=== PATIENT | male | born 1995 | race African-American/Black ===

== ENCOUNTER 2022-10-28 16:36 | Emergency (ER) | payer BC, OTHER ==
[~2022-10-28] VITALS: Ht 182.9 cm; Wt 61.2 kg
[2022-10-28 17:12] VITALS: BP 114/68
--- NOTE | 2022-10-28 22:05 | NUR ---
Patient discharged to home in stable condition. Written and verbal after care instructions given. Patient verbalizes understanding of instruction.
--- NOTE | 2022-10-29 08:05 | NUR ---
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
== END 2022-10-29 07:00 | disposition home or self-care (01) ==
LOC: ER 16:53
DX: T69.022A Immersion foot, left foot, initial encounter (principal); T69.021A Immersion foot, right foot, initial encounter